=== PATIENT | female | born 1945 | race Caucasian/White ===

== ENCOUNTER 2016-10-23 08:11 | Day surgery (SDC) | payer MEDICARE, OTHER ==
[~2016-10-23] VITALS: Ht 154.9 cm; Wt 93.0 kg
[~2016-10-23 08:11] MED LIST: CARV6.252 PO; CHOL5000 PO; FLAX100010 PO; LOSA1TAB35 PO; Lactated Ringer's 1,000 ML IV ONE; MAGN250T29 PO; MELO-253 PO; ROPI0.252 PO
[2016-10-23] MEDS ORDERED: Propofol 10,000 mCg/mL 20 mL Inj ONE ×2 (08:12)
[2016-10-23] MEDS ORDERED: Lidocaine PF 1% 30 mL Inj ONE ×2 (08:12)
[2016-10-23 08:37] VITALS: BP 150/78; PULSE 73; RESP 16; O2SAT 95
[2016-10-23] MEDS ORDERED: OMEP40CA36 PO (08:47)
[2016-10-23] MEDS ORDERED: Lactated Ringer's 1,000 ML IV SCH (09:27)
[2016-10-23] MEDS ORDERED: Ondansetron 2 mg/mL 2 mL Inj IVPUSH PRN (09:30)
[2016-10-23] MEDS ORDERED: MetoCLOpramide 5 mg/mL 2 mL Inj IVPUSH PRN (09:30)
--- NOTE | 2016-10-23 09:55 | PCM.HPANE ---
Patient Data Date of Service: Oct 23, 2016 Surgeon Admitting Provider: Attending Provider:Bear Nugent MD Primary Care Physician:Nav Iqbal MD Other Provider:Henny Padron Anesthesia Reason for Visit GERD Ht/WT & BMI Height (Feet): 5 Height (Inches): 1 Weight (Kilograms): 92.99 Body Mass Index 38.00 Allergies Coded Allergies: flu vaccine ts 2012-(6 mos+) (Verified Allergy, Severe, SOB, 08/26/13) shellfish derived (Verified Allergy, Severe, SOB,ANAPHYLAXIS,SWELLING, ) iodine (Verified Allergy, Unknown, NOTE SHELLFISH ALLERGY, 08/26/13) codeine (Verified Adverse Reaction, Severe, DIZZINESS, 08/26/13) Past Anesthesia History Anesthesia History: Denies:: Abnormal Airway, Anesthesia Reactions, Difficult Intubation, Fam Anesthesia Reaction, Fam Malignant Hypertherm, Malignant Hyperthermia Diabetes History Hx Diabetes?: Yes Type of Diabetes: Type II Glycemic Control: Oral Medication Current Bedside Blood Glucose: 121 MRSA MRSA: No Medications Blood Thinner: Aspirin Home Meds Incl Beta Sarita: Yes Date Beta Sarita Taken: Oct 22, 2016 Time Beta Sarita Taken: 1999 Reported Medications Omeprazole 40 Mg Capsule.dr40 Mg PO DAILY Ref 0 10/23/16 Cholecalciferol (Vitamin D3) (Vitamin D3)5,000 Unit Capsule5,000 Unit PO DAILY 10/22/16 Meloxicam 15 Mg Cyjieu78 Mg PO DAILY 30 Days Ref 0 10/22/16 Flaxseed (Flaxseed Oil)1,000 Mg Capsule1,000 Mg PO 08/23/14 Magnesium Oxide (Magnesium)250 Mg [id number] Mg PO 08/23/14 Losartan/HCTZ 100-12.5 mg 1 Each Tablet1 Each PO DAILY 30 Days Ref 0 08/23/14 Carvedilol 6.25 Mg Tablet6.25 Mg PO BID Ref 0 08/23/14 Ropinirole 0.25 Mg Tablet0.25 Mg PO TID 90 Days Ref 0 08/23/14 Discontinued Reported Medications Albuterol HFA 8.5 Gm Hfa.aer.ad1 Puff IH Q4 PRN For Shortness of Breath #1 INHALER Ref 0 08/23/14 Discontinued Scripts Ondansetron ODT (Zofran ODT)4 Mg Tablet4 Mg PO Q4H PRN For Nausea #15 TABLET Prov:Elías Ivy MD 07/17/16 Meclizine (Bonine)25 Mg Tab.chew25 Mg PO QID #15 TABLET Ref 1 Prov:Elías Ivy MD 07/17/16 History History of ENT Problems?: Yes HEENT History: Positive for:: Cataracts (S/P EXTRACTIONS) Hearing Problem (LEFT REMY AT HOME) Denies:: Abnormal Airway Difficult Intubation Dysphagia Sinus Problem Denture Type: Partial- Upper Hx of Heart Problems?: Yes Cardiovascular History: Positive for:: Hypertension Denies:: AICD Atrial Fibrillation Cardiac Surgery Chest Pain Congestive Heart Failure Edema Heart Murmur Irregular Heartbeat Pacemaker Thrombophlebitis Valvular Heart Disease Hx of Respiratory Problem?: Yes Respiratory History: Positive for:: Asthma Cough (DRY) Dyspnea Pneumonia 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) Denies:: COPD Chest Surgery Emphysema Hemoptysis Use of C-PAP Machine Other Resp Pertinent History: NEW ONSET OF SOB Hx Neurologic Problems?: No Neurological History: Denies:: Alzheimer's Disease CVA Dementia Dizziness Headaches Parkinson's Disease Seizures Hx of GI Problems?: Yes Gastrointestinal History: Positive for:: Gall Bladder Disease (REMOVED) Gastroesphageal Reflux Heartburn Denies:: Cirrhosis Diverticulitis Gastrointestinal Bleeding Hepatitis Hiatal Hernia Liver Disease Rectal Bleeding Hx of Problems?: No Genitourinary History: Denies:: HX of Hemodialysis Kidney Stones Urinary Tract Infection HX of Peritoneal Dialysis: No Female Hx: Denies:: Currently Endometriosis Pelvic Inflammatory Problems with Breasts? Skin History: Positive for:: History Skin Disorders? (PSORIASIS) Denies:: Pressure Ulcers Hx Musculoskeletal Problems?: Yes Musculoskeletal History: Positive for:: Back Injury Degenerative Joint Joint Replacement (BILAT KNEES) Musculoskeletal Trauma Denies:: Fibromyalgia Hx of Psycho/Social Problems?: No Psycho Social History: Denies:: Anxiety Bipolar Disorder Hx Depression Suicide Attempt Hx Surgeries?: Yes (BILAT TKA, LAP TAMAR, CSECTION X2, HYSTO, L SHOULDER) Hx Any Other Health Problems?: Yes Other History: Positive for:: Hospitalization Denies:: Cancer Endocrine Disease Thyroid Disease History Blood Transfusions: Denies:: Blood Transfuse Reaction Blood Transfusions Hx Diabetes: YesBedside Blood Glucose: 121 Hx Alcohol Use: NoHx Substance Use: No Smoking Status: Former Smoker Have You Smoked inLast 12 mo: No Stop/Bang Treated for Sleep Apnea?: No Do You Have a CPAP Machine?: No S-Snoring: Do You Snore Loudly: Yes T-Tired: feel tired, fatigued: No O-Obsered: Observed not breath: No P-Blood Pressure: treated: Yes B- Body Mass Index > 35 kg/m2: Yes A- Age over 50: Yes N- Neck Large Circumference: No G- Gender Male: No JUDE Total Score: 4 JUDE Risk Assessment: High Risk, =/>3 Yes Risk Assessment Category Category 1A: Patient has history of documented sleep apnea, and HAS NOT received any narcotic, sedative or anesthesia administration during this stay. Category 1B: Patient has history of documented sleep apnea, and HAS received any narcotic , sedative or anesthesia administration during this stay Category 2: Patient has SUSPECTED Obstructive Sleep Apnea, and HAS received any narcotic , sedative or anesthesia administration during this stay. Category 3: Patient has SUSPECTED Obstructive Sleep Apnea and HAS NOT received narcotic, sedative or anesthesia administration during this stay. Category 4: Outpatient in Procedural Areas with known sleep apnea or who screen positive for High Risk via the STOP/BANG questionnaire. Exam Exam Vital Signs Vital Signs Date Time Temp Pulse Resp B/P Pulse Ox O2 Delivery O2 Flow Rate FiO2 10/23/16 08:37 73 16 150/78 95 Room Air General Appearance: Alert, Oriented X3, Cooperative HEENT/AIRWAY: MP 3, Mouth Opening (Wide, upper dentures) Lungs: Clear to Auscultation, Normal Air Movement Heart: Regular Rate/Rhythm, Normal S1, Normal S2 Meds/Labs/Diagnostics Bedside Blood Glucose: 121 Diagnositcs stress test negative, echo wnl Plan Impression Patient chart reviewed, patient interviewed and anesthestic plan with risks, benefits, and alternatives discussed, and informed consent obtained. NPO Status: water 0600 ASA Physical Status: ASA2 Mod Systemic Disease Anesthetic Plan: MAC Bene/Risks/Altern/Consents: Yes HP Complete Prior to Induction: Yes Eric Newell MD Oct 23, 2016 09:27
--- NOTE | 2016-10-23 10:13 | PCM.ENDEGD ---
EGD Date of Service: Oct 23, 2016 Physician Bear Nugent MD Pre Procedure Diagnosis: Dysphagia Post Procedure Dx & Findings: Gastric ulcer Procedure Esophagogastroduodenoscopy PROCEDURE IN DETAIL: After proper sedation, Olympus video endoscope was inserted into patient's mouth and esophagus was successfully intubated. Scope introduced esophagus. Esophagus showed normal shiny whitish mucosa consistent with squamous cell component. Z line was intact at 37 cm from the incisors. Scope further advanced to the stomach. Stomach showed normal shiny mucosa with normal appearing rugae folds without any ulcer mass erosion. However in the antrum, right next to the pylorus there was a 1 cm ulcer semi-healing with clean base and surrounding scarring and inflammation. Biopsies obtained. Cardia fundus body antrum pylorus were all visualized. Retroflexion was done. Stomach was easily inflated and deflatable using air. Scope further events to the distal duodenum. Duodenum revealed normal villous structures with normal appearing folds without any mass ulcer erosion. Impression Semi-healing gastric ulcer Recommendation Await biopsy Continue PPI Presedation Assessment Risks and Benefits Informed consent was obtained from the patient after all risks and benefits including but not limited to drug reaction, infection, pain, bleeding, perforation, as well as alternatives were discussed. Patient monitoring Continuous pulse oximetry, cardiac monitoring, blood pressure monitoring, IV access, and oxygen at 2L per nasal cannula. Complications There were no periprocedural complications identified. Post Procedure Plan Post Procedure Recommendations 1. Restrict activities today. 2. Resume normal activities in the morning. 3. Resume medications. 4. GERD behavioral modification: - Avoid fatty, acidic, spicy, large meals - Do not lie down after meals - Do not eat or drink anything for at least 2 1/2 hours before going to bed at night - Discontinue tobacco and alcohol - Decrease or avoid caffeine - Avoid chocolate and mints - Decrease weight - Avoid aspirin and non steroidal anti-inflammatory agents (NSAID) such as Aleve, Advil, Mobic, Naproxen, Ibuprofen, etc 5. Add proton pump inhibitor. Take 30 minutes before 1st meal of the day. 6. Patient informed of normal post procedure side effects as bloating, drowsiness, blood streaking in the stool 7. If gastric biopsy reveal H.pylori, continue with appropriate treatment 8. If small bowel biopsy reveals celiac, continue with appropriate treatment 9. Please don't hesitate to call me with any questions Bear Nugent MD Oct 23, 2016 10:13
--- NOTE | 2016-10-23 10:43 | PCM.ENDCOL ---
Colonoscopy Date of Service: Oct 23, 2016 Physician Bear Nugent MD Pre Procedure Diagnosis: Personal history of colon polyp Post Procedure Dx & Findings: Polyp hemorrhoids Procedure Colonoscopy PROCEDURE IN DETAIL: Prep adequate Withdrawal time 17 minutes After unremarkable rectal examination the Olympus video colonoscope was inserted patient's anal canal and was advanced to cecum. Landmarks were identified including the ileocecal valve and appendiceal orifice. Scope was withdrawn systematically. Visualized colonic mucosa showed healthy shiny mucosa with normal healthy-appearing vasculature. In the cecum, there was a 1 cm polyp flat polyp was resected completely using hot snare. In the ascending colon, there were 2 polyps. One was 3 mm in size and the other one was about 8 mm in size. These were resected completely using cold snare. In the sigmoid colon, there was a 3 mm polyp which was resected completely using cold snare. And in the rectum there was a 1 cm polyp which was resected completely using hot snare. Rectum and the sigmoid colon polyps were placed in the same bottle. In the rectum retroflexion was done which showed hemorrhoids. Anal canal was inspected carefully on the way out and hemorrhoids noted. Impression Polyps 5 status post complete removal Hemorrhoids Recommendation Repeat colonoscopy 3 years Presedation Assessment Risks and Benefits Informed consent was obtained from the patient after all risks and benefits including but not limited to drug reaction, infection, pain, bleeding, perforation, as well as alternatives were discussed. Patient monitoring Continuous pulse oximetry, cardiac monitoring, blood pressure monitoring, IV access, and oxygen at 2L per nasal cannula. Complications There were no periprocedural complications identified. Post Procedure Plan Post Procedure Recommendations 1. Restrict activities today. 2. Resume normal activities in the morning. 3. Resume medications. 4. Patient informed of normal post procedure side effects as bloating, drowsiness, blood streaking in the stool. 5. average risk CRCS. If colon polyps come back as: -Hyperplastic- can repeat colonoscopy in 10 years -Tubular adenoma- repeat colonoscopy in 5 years -Tubulovillous/villous adenoma- repeat colonoscopy in 3 years -If any dysplasia- return to clinic as soon as possible 6. Please don't hesitate to call me with any questions. Bear Nugent MD Oct 23, 2016 10:43
[2016-10-23 10:46] VITALS: BP 123/51; PULSE 69; RESP 14; O2SAT 94
[2016-10-23 10:53] VITALS: BP 123/51; RESP 14; O2SAT 97
--- NOTE | 2016-10-23 10:56 | PCM.ANEP1 ---
Post Anesthesia Phase 1 PACU Phase 1 Assessment Date of Service: Oct 23, 2016 Vital Signs Vital Signs Date Time Temp Pulse Resp B/P Pulse Ox O2 Delivery O2 Flow Rate FiO2 10/23/16 10:53 14 123/51 97 Room Air 10/23/16 10:46 36.2 69 14 123/51 94 Room Air 10/23/16 08:37 73 16 150/78 95 Room Air Anesthetic Administered: MAC Level of Alertness: Awake, talking CASANOVA's with Equal Strength: Yes Pain: No Nausea or Vomiting: No Oxygen Delivery: Nasal Cannula Lungs: Normal Air Movement Eric Newell MD Oct 23, 2016 10:56
[2016-10-23 11:03] VITALS: BP 181/93; PULSE 69; RESP 14; O2SAT 99
--- NOTE | 2016-10-23 11:26 | PCM.ANEP2 ---
Post Anesthesia Evaluation ASA/CMS Post Anesthesia Date of Service: Oct 23, 2016 VS in Patient's Normal Range?: Yes Resp Stable; Airway Patent?: Yes CV Function & Hydration Stable: Yes Mental Status Recovered?: Yes Pain control Satisfactory?: Yes N/V Control Satisfactory?: Yes Eric Newell MD Oct 23, 2016 11:26
--- NOTE | 2016-10-24 15:47 | PATH ---
SURGICAL PATHOLOGY Attending Physician:Bear Nugent M.D. CASE STATUS: Signed Out PATIENT NAME: SHANNON ASHRAF PID: [id number] : 1945 DATE COLLECTED:10/23/2016 17:27 SPECIMEN: 1: Gastric, Biopsy 2: Colon, Biopsy 3: Colon, Biopsy 4: Rectum, Biopsy CLINICAL HISTORY: 1). GASTRIC ULCER BIOPSY 2). CECAL POLYP X1 3). ASCENDING COLON POLYP X2 4). RECTAL POLYP X2 FINAL DIAGNOSIS: 1.GASTRIC ULCER BIOPSY: MILD CHRONIC GASTRITIS INVOLVING ANTRAL MUCOSA WITH NO DEFINITE ULCERATION IDENTIFIED. Negative for evidence of Helicobacter. Negative for intestinal metaplasia. Negative for dysplasia and malignancy. 2.CECAL POLYP: TUBULAR ADENOMA INVOLVING BOTH BIOPSY FRAGMENTS. 3.ASCENDING COLON POLYP: TUBULAR ADENOMA INVOLVING FOUR BIOPSY FRAGMENTS. 4.RECTAL POLYP: TUBULAR ADENOMA INVOLVING BOTH BIOPSY FRAGMENTS. ICD10 CODE D12.0 GROSS DESCRIPTION: The specimen is received in four formalin filled containers labeled with the patient's name. 1). The specimen is sublabeled "gastric ulcer" and consists of a 0.3 x 0.3 x 0.3 CM portion of tissue which is entirely submitted in cassette 1A. 2). The specimen is sublabeled "cecal polyp x1" and consists of 2 portions of tissue which aggregate to 0.6 0.5 x 0.3 CM. The specimen is entirely submitted in cassette 2A. 3). The specimen is sublabeled "ascending colon polyp X2" and consists of multiple portions of tissue which aggregate to 0.4 x 0.4 x 0.2 CM. The specimen is entirely submitted in cassette 3A. 4). The specimen is sublabeled "rectal polyp x2" and consists of 2 portions of tissue which aggregate to 0.7 x 0.5 x 0.4 CM. The specimen is entirely submitted in cassette 4A. 10/23/2016 DAC MICRO DESCRIPTION: See diagnosis. ICD-9 CODES: CPT CODES: 1: 12890 2: 60868 3: 69766 4: 49649 Electronically Signed Out Sean Hogue MD [facility] Pathology [facility] [place] [address] Technical component performed at [facility], [facility] [address], [place], [address]
== END 2016-10-23 23:59 | disposition home or self-care (01) ==
LOC: END 08:11
PROVIDERS: ATTEND Internal Medicine
DX: Z12.11 Encounter for screening for malignant neoplasm of colon (principal); D12.0 Benign neoplasm of cecum; D12.2 Benign neoplasm of ascending colon; D12.8 Benign neoplasm of rectum; K64.8 Other hemorrhoids; Z86.010 Personal history of colon polyps; K29.50 Unspecified chronic gastritis without bleeding; K25.9 Gastric ulcer, unspecified as acute or chronic, without hemorrhage or perforation; E11.9 Type 2 diabetes mellitus without complications; G25.81 Restless legs syndrome; I10 Essential (primary) hypertension; M51.36 Other intervertebral disc degeneration, lumbar region; I25.10 Atherosclerotic heart disease of native coronary artery without angina pectoris; F17.210 Nicotine dependence, cigarettes, uncomplicated
CPT/HCPCS: 43239; 45380; 45385; J7120